=== PATIENT | female | born 1955 | race Caucasian/White ===

== ENCOUNTER 2020-08-06 22:02 | Emergency (ER) | payer BC, OTHER ==
[2020-08-06 22:32] VITALS: BP 100/70; PULSE 67; TEMP 99; BMI 23.4
[2020-08-06] MEDS ORDERED: SILVER NITRATE 75% APPLIC STCK 1 PKT EACH TP ONE (22:41)
[2020-08-06] MEDS ORDERED: SILVER NITRATE 75% APPLIC STCK 1 PKT EACH ONE (22:43)
== END 2020-08-07 00:30 | disposition home or self-care (01) ==
LOC: JER 22:02
DX: K94.00 Colostomy complication, unspecified (principal); K94.10 Enterostomy complication, unspecified
CPT/HCPCS: 99283-25